=== PATIENT | female | born 1955 | race Caucasian/White ===

== ENCOUNTER → 2021-06-11 | Day surgery (SDC) | payer MEDICARE ==
[2021-06-07 09:50] VITALS: BMI 38.3
[~2021-06-11] MED LIST: GLUCAGON 1 MG/ML VIAL ONE; LACTATED RINGERS 1,000 ML IV SCH; PROPOFOL 10 MG/ML 20 ML VIAL IV ONE
[2021-06-11 11:54] VITALS: TEMP 74
[2021-06-11 12:13] LABS: Glucose,Whole Blood 145 mg/dL (75-99)
--- NOTE | 2021-06-11 13:36 | P.GSHP ---
History of Present Illness H&P Date: 06/11/21 Chief Complaint: History of rectal polyp Is a 66-year-old female who presents today for colonoscopy. She has history of rectal polyp. Past Medical History Past Medical History: Diabetes Mellitus, Fibromyalgia, Hyperlipidemia, Hyperten adriel, Osteoarthritis (OA), Thyroid Disorder Additional Past Medical History / Comment(s): HEMOGLOBIN AND IRON LEVELS CONTINUE TO BE LOW. hx colon polyps. lt arm laceration with 28 stiches 04/22/21 History of Any Multi-Drug Resistant Organisms: None Reported Past Surgical History: Hysterectomy, Joint Replacement Additional Past Surgical History / Comment(s): rt hip replacement Past Anesthesia/Blood Transfusion Reactions: Motion Sickness Smoking Status: Former smoker Medications and Allergies Home Medications Medication Instructions Recorded Confirmed Type Acetaminophen [Tylenol] 325 mg PO Q4H PRN 06/22/15 06/07/21 History Atorvastatin [Lipitor] 10 mg PO HS 06/22/15 06/07/21 History Levothyroxine Sodium [Synthroid] 75 mcg PO QAM 06/22/15 06/07/21 History Bisoprol/Hydrochlorothiazide [Ziac 1 tab PO DAILY 06/07/21 06/07/21 History 10-6.25 MG] Celecoxib [CeleBREX] 200 mg PO DAILY 06/07/21 06/07/21 History Ferrous Sulfate [Feosol] 325 mg PO DAILY 06/07/21 06/07/21 History Omeprazole 20 mg PO DAILY 06/07/21 06/07/21 History Pioglitazone HCl 30 mg PO DAILY 06/07/21 06/07/21 History sitaGLIPtin [Januvia] 100 mg PO DAILY 06/07/21 06/07/21 History Allergies Allergy/AdvReac Type Severity Reaction Status Date / Time No Known Allergies Allergy Verified 06/11/21 11:48 Surgical - Exam Vital Signs Temp Pulse Resp BP Pulse Ox 74 F L 70 16 130/64 98 06/11/21 11:54 06/11/21 11:54 06/11/21 11:54 06/11/21 11:54 06/11/21 11:54 - General well developed, well nourished, no distress - Eyes PERRL - ENT normal pinna - Neck no masses - Respiratory normal expansion - Cardiovascular Rhythm: regular - Abdomen Abdomen: soft, non tender Results - Labs Abnormal Lab Results - Last 24 Hours (Table) 06/11/21 Range/Units 12:11 POC Glucose (mg/dL) 145 H (75-99) mg/dL Assessment and Plan Assessment: She will follow. We'll perform colonoscopy.
--- NOTE | 2021-06-11 13:48 | P.OP ---
Date of Procedure: 06/11/21 Preoperative Diagnosis: Rectal polyp Postoperative Diagnosis: Patulous anus Procedure(s) Performed: Colonoscopy Anesthesia: MAC Surgeon: Artur Boston Pathology: none sent Condition: stable Disposition: PACU Description of Procedure: The patient's placed on the endoscopy table in the lateral position. She received IV sedation. Digital rectal exam was performed which revealed NO anal sphincter tone. The flexible colonoscope was then placed patient anus passed with colon. Scope was passed beyond the sigmoid colon. Patient is unable to hold air and colonoscopy. The bowel was unable be dilated. This point scope was withdrawn. Patient was scheduled for a barium enema.
[2021-06-11 14:20] VITALS: BP 121/80; PULSE 66; RESP 20
--- NOTE | 2021-06-12 08:00 | FL ---
EXAMINATION TYPE: FL barium enema w air contrast DATE OF EXAM: 06/11/2021 COMPARISON: NONE HISTORY: Incomplete colonoscopy TECHNIQUE: A double contrast barium enema study is performed. A total of 1 minute 9 seconds of fluo roscopic time was utilized during procedure and 24 images obtained. FINDINGS: Business Operations Specialist view of the abdomen shows overall non-obstructive bowel gas pattern. Slight colonic gas prominence. Metallic hardware from right hip arthroplasty is noted. Enema study is performed. Study is slightly suboptimal as patient had pain and could not hold contras t leaking all over table. There is successful filling to the cecum. Some diverticular are present at level of sigmoid colon. No obstructing or constricting lesion is identified. Appendix was not filled. The terminal ileum was refluxed and appears within normal limits. IMPRESSION: Suboptimal study. No obstructing or constricting lesion.
== END | disposition home or self-care (01) ==
LOC: ORWHC2ENDO 11:17
PROVIDERS: ATTEND Surgery
DX: K62.1 Rectal polyp (principal); I10 Essential (primary) hypertension; E78.5 Hyperlipidemia, unspecified; Z87.891 Personal history of nicotine dependence; E11.9 Type 2 diabetes mellitus without complications; M79.7 Fibromyalgia; M19.90 Unspecified osteoarthritis, unspecified site; E07.9 Disorder of thyroid, unspecified; Z79.84 Long term (current) use of oral hypoglycemic drugs; Z79.890 Hormone replacement therapy; Z79.899 Other long term (current) drug therapy; Z86.010 Personal history of colon polyps; Z90.710 Acquired absence of both cervix and uterus; Z79.1 Long term (current) use of non-steroidal anti-inflammatories (NSAID); Z96.641 Presence of right artificial hip joint
CPT/HCPCS: 74280; 45330; J1610; J2704